=== PATIENT | male | born 1975 | race Caucasian/White ===

== ENCOUNTER 2017-05-09 12:42 | Inpatient (IN) ==
[2017-05-09] MEDS ORDERED: DILTIAZEM 50 MG/10 ML VIAL IV STA (13:09)
[2017-05-09] MEDS ORDERED: ENOXAPARIN 100 MG/ML SYRINGE SUBCUT STA (13:09)
[2017-05-09] MEDS ORDERED: ASPIRIN 325 MG TABLET PO STA (13:09)
[2017-05-09] MEDS ORDERED: DILTIAZEM 100 MG VIAL.ADD IV ONE (13:23)
[2017-05-09] MEDS ORDERED: ASPIRIN 325 MG TABLET ONE (13:23)
[2017-05-09] MEDS ORDERED: ENOXAPARIN 120 MG/0.8 ML SYRINGE SUBCUT ONE (13:23)
[2017-05-09] MEDS ORDERED: DILTIAZEM 50 MG/10 ML VIAL IV ONE (13:24)
[2017-05-09] MEDS ORDERED: SODIUM CHLORIDE 0.9% 0 ML IV ONE (13:24)
[2017-05-09] MEDS ORDERED: SODIUM CHLORIDE 0.9% 100 ML IV ONE (13:26)
[2017-05-09] MEDS ORDERED: DILTIAZEM INJ 100 MG in SODIUM CHLORIDE 0.9% 100 ML IV SCH (13:30)
[2017-05-09 14:00] LABS: Basophils # 0.1 10*3/uL (0.0-0.2); Basophils % 0.6 % (0.0-0.8); Hematocrit 47.4 VOL% (42.0-52.0); Hemoglobin 16.6 GM/DL (14.0-18.0); Immature Granulocytes % 0.7 %; Immature Granulocytes Absolute 0.06 #; Lymphocytes % 11.9 % (21.2-54.2); Mean Corpuscular Hemoglobin 34 PG (27-34); Mean Corpuscular Volume 96.1 FL (87-102); Mean Platelet Volume 10.4 FL (9.6-12.0); Monocytes # 0.9 10*3/uL (0.11-0.8); Monocytes % 10.6 % (1.7-12.7); Neutrophils # 6.6 10*3/uL (1.4-7.4); Neutrophils % 76.2 % (38.7-73.9); Platelet Count 301 T/CUMM (130-400); Red Blood Count 4.93 MC/CUMM (3.8-5.5); Red Cell Distribution Width 13.9 % (9.3-17.3); White Blood Count 8.6 T/CUMM (4-12)
[2017-05-09 14:08] LABS: PT Patient Result 10.1 SECS
[2017-05-09 14:25] LABS: Alanine Aminotransferase 115 U/L (16-61); Albumin 3.7 G/DL (3.4-5.0); Alkaline Phosphatase 72 U/L (45-117); Aspartate Amino Transferase 126 U/L (0-37); Blood Urea Nitrogen 12 MG/DL (7-18); Calcium 8.6 MG/DL (8.5-10.1); Glucose 227 MG/DL (74-106); Magnesium 1.5 MG/DL (1.8-2.4); Osmolality,Calculated 281.7 MOS/KG (273-304); Potassium 3.8 MMOL/L (3.5-5.1); Sodium 138 MMOL/L (136-145); Total Protein 7.9 G/DL (6.4-8.3); Troponin I Only < 0.015 NG/ML (0.00-0.045)
[2017-05-09] MEDS ORDERED: BISACODYL 5 MG TABLET PO PRN (15:14)
[2017-05-09] MEDS ORDERED: MORPHINE 2 MG/1 ML SYRINGE IV PRN (15:14)
[2017-05-09] MEDS ORDERED: MAGNESIUM SULF RIDER 4 GM in PREMIX 1 EACH IV PRN (15:14)
[2017-05-09] MEDS ORDERED: DOCUSATE SODIUM 100 MG CAPSULE PO PRN (15:14)
[2017-05-09] MEDS ORDERED: DEXTROSE 50% 25 GM/50 ML VIAL IV PRN (15:14)
[2017-05-09] MEDS ORDERED: LACTULOSE 20 GM/30 ML UDCUP PO PRN (15:14)
[2017-05-09] MEDS ORDERED: ACETAMINOPHEN 325 MG TABLET PO PRN (15:14)
[2017-05-09] MEDS ORDERED: ONDANSETRON 4 MG/2 ML VIAL IV PRN (15:14)
[2017-05-09] MEDS ORDERED: ZALEPLON 5 MG CAPSULE PO PRN (15:14)
[2017-05-09] MEDS ORDERED: GLUCAGON 1 MG VIAL IM PRN (15:14)
[2017-05-09] MEDS ORDERED: MAGNESIUM SULF RIDER 2 GM in PREMIX 1 EACH IV PRN (15:14)
[2017-05-09] MEDS ORDERED: SOTALOL 80 MG TABLET ONE (15:15)
[2017-05-09] MEDS: SOTALOL 80 MG TABLET PO SCH ×2 (15:20→21:36)
[2017-05-09] MEDS ORDERED: ONDANSETRON ODT 4 MG TABLET PO PRN (15:25)
[2017-05-09] MEDS ORDERED: DICYCLOMINE 20 MG TABLET PO PRN (15:25)
[2017-05-09] MEDS: INSULIN REGULAR 100 UNIT/ML SUBCUT SCH ×2 (17:57→21:36)
[2017-05-09] MEDS: APIXABAN 5 MG TABLET PO SCH ×2 (18:45→21:36)
[2017-05-09 22:56] LABS: Troponin I Only < 0.015 NG/ML (0.00-0.045)
[2017-05-09 22:56] LABS: Troponin I Only < 0.015 NG/ML (0.00-0.045)
[2017-05-10 03:36] LABS: Basophils % 0.7 % (0.0-0.8); Eosinophils % 0.2 % (0.00-10.9); Hematocrit 44.7 VOL% (42.0-52.0); Hemoglobin 15.6 GM/DL (14.0-18.0); Immature Granulocytes % 0.9 %; Immature Granulocytes Absolute 0.05 #; Lymphocytes # 2.2 10*3/uL (1.4-4.0); Lymphocytes % 37.6 % (21.2-54.2); Mean Corpuscular HGB Conc 34.9 GM/DL (32-36); Mean Corpuscular Hemoglobin 34 PG (27-34); Mean Corpuscular Volume 96.3 FL (87-102); Mean Platelet Volume 10.7 FL (9.6-12.0); Monocytes # 0.7 10*3/uL (0.11-0.8); Monocytes % 11.8 % (1.7-12.7); NRBC # 0.02 10*3/uL; Neutrophils # 2.9 10*3/uL (1.4-7.4); Neutrophils % 48.8 % (38.7-73.9); Platelet Count 250 T/CUMM (130-400); Red Blood Count 4.64 MC/CUMM (3.8-5.5); Red Cell Distribution Width 13.9 % (9.3-17.3); White Blood Count 5.8 T/CUMM (4-12)
[2017-05-10 04:06] LABS: Albumin 3.4 G/DL (3.4-5.0); Bilirubin,Total 0.7 MG/DL (0.2-1.0); Calcium 8.5 MG/DL (8.5-10.1); Osmolality,Calculated 283.3 MOS/KG (273-304); Potassium 3.9 MMOL/L (3.5-5.1); Risk Ratio 2.47; Total Protein 6.8 G/DL (6.4-8.3); VLDL CHOLESTEROL 22.4 MG/DL
[2017-05-10] MEDS: INSULIN REGULAR 100 UNIT/ML SUBCUT SCH ×4 (07:35→21:42)
[2017-05-10] MEDS: APIXABAN 5 MG TABLET PO SCH ×2 (08:39→21:41)
[2017-05-10] MEDS: SOTALOL 80 MG TABLET PO SCH ×2 (08:39→21:41)
[2017-05-10] MEDS: metFORMIN 500 MG TABLET PO SCH (08:39)
[2017-05-10] MEDS: PANTOPRAZOLE 40 MG TABLET PO SCH (08:39)
[2017-05-10] MEDS: LISINOPRIL/HCTZ 20-25 MG TABLET PO SCH (08:42)
[2017-05-11 05:10] LABS: Basophils % 0.6 % (0.0-0.8); Eosinophils % 0.4 % (0.00-10.9); Hematocrit 44.7 VOL% (42.0-52.0); Hemoglobin 15.7 GM/DL (14.0-18.0); Immature Granulocytes % 0.8 %; Immature Granulocytes Absolute 0.04 #; Lymphocytes # 1.8 10*3/uL (1.4-4.0); Lymphocytes % 36.7 % (21.2-54.2); Mean Corpuscular HGB Conc 35.1 GM/DL (32-36); Mean Corpuscular Hemoglobin 34 PG (27-34); Mean Corpuscular Volume 96.1 FL (87-102); Mean Platelet Volume 10.4 FL (9.6-12.0); Monocytes # 0.5 10*3/uL (0.11-0.8); Monocytes % 10.4 % (1.7-12.7); Neutrophils # 2.6 10*3/uL (1.4-7.4); Neutrophils % 51.1 % (38.7-73.9); Platelet Count 234 T/CUMM (130-400); Red Blood Count 4.65 MC/CUMM (3.8-5.5); Red Cell Distribution Width 13.6 % (9.3-17.3)
[2017-05-11 05:46] LABS: Calcium 8.6 MG/DL (8.5-10.1); Magnesium 1.6 MG/DL (1.8-2.4); Potassium 3.8 MMOL/L (3.5-5.1)
[2017-05-11 06:32] LABS: Hepatitis A Ab IgM Quant 0.05 Index; Hepatitis A Ab IgM Result Negative (Negative); Hepatitis B Core IgM Quant 0.07 Index; Hepatitis B Core IgM Result Negative (Negative); Hepatitis C Virus Ab Quant 0.15 Index; Hepatitis C Virus Ab Result Negative (Negative)
[2017-05-11] MEDS: INSULIN REGULAR 100 UNIT/ML SUBCUT SCH ×2 (08:36→14:17)
[2017-05-11] MEDS ORDERED: MAGNESIUM OXIDE 400 MG TABLET PO SCH (09:00)
[2017-05-11] MEDS: metFORMIN 500 MG TABLET PO SCH (10:20)
[2017-05-11] MEDS: PANTOPRAZOLE 40 MG TABLET PO SCH (10:20)
[2017-05-11] MEDS: SOTALOL 80 MG TABLET PO SCH (10:20)
[2017-05-11] MEDS: APIXABAN 5 MG TABLET PO SCH (10:20)
[2017-05-11] MEDS: LISINOPRIL/HCTZ 20-25 MG TABLET PO SCH (10:24)
[2017-05-11 12:01] VITALS: BP 146/101
[2017-05-14 05:10] LABS: Hepatitis B Surface Ag Result Negative (Negative)
== END 2017-05-11 14:40 | disposition home or self-care (01) | DRG 310 ==
LOC: N.ED 12:42 → N.EDINP 15:14 → N.TELES 17:37
PROVIDERS: ADMIT Internal Medicine Cardiovascular Disease; ATTEND Internal Medicine Cardiovascular Disease